=== PATIENT | female | born 1960 | race Caucasian/White ===

== ENCOUNTER 2016-08-04 11:20 | Emergency (ER) | payer BC ==
[2016-08-04] MEDS ORDERED: ACETAMINOPHEN 325 MG TABLET PO STA (11:46)
[2016-08-04] MEDS ORDERED: ACETAMINOPHEN 325 MG TABLET PO ONE (11:47)
== END 2016-08-04 12:44 | disposition home or self-care (01) ==
DX: S06.0X0A Concussion without loss of consciousness, initial encounter (principal); S60.222A Contusion of left hand, initial encounter; W10.9XXA Fall (on) (from) unspecified stairs and steps, initial encounter; Y92.008 Other place in unspecified non-institutional (private) residence as the place of occurrence of the external cause
CPT/HCPCS: 70450; 73130; 99283; A9270

== ENCOUNTER 2017-07-08 07:05 | Outpatient (CLI) | payer BC ==
--- NOTE | 2017-07-09 16:20 | Mammography Report ---
DIGITAL SCREENING MAMMOGRAM: 07/08/2017 CLINICAL INDICATION: A 57-year-old nulliparous patient with family history of breast cancer, for screening. COMPARISON: 09/2013. TECHNIQUE: Routine CC and MLO projections were obtained of the breasts. FINDINGS: The breasts demonstrate scattered fibroglandular densities bilaterally. A few coarse, typically benign calcifications are present. No suspicious masses, clustered microcalcifications, or regions of architectural distortion are identified. IMPRESSION: BENIGN FINDINGS. RECOMMENDATION: ROUTINE ANNUAL SCREENING UNLESS OTHERWISE CLINICALLY INDICATED. BIRADS CATEGORY 2-BENIGN FINDINGS. STANDARD QUALIFYING STATEMENTS: 1. This examination was reviewed with the aid of Computer-Aided Detection (CAD). 2. A negative or benign imaging report should not delay biopsy if clinically suspicious findings are present. Consider surgical consultation if warranted. More than 5% of cancers are not identified by imaging. 3. Dense breasts may obscure an underlying neoplasm. TD: 07/09/2017 16:19
== END 2017-07-08 07:06 | disposition home or self-care (01) ==
LOC: DI 07:05
PROVIDERS: ATTEND Internal Medicine
DX: Z12.31 Encounter for screening mammogram for malignant neoplasm of breast (principal); Z80.3 Family history of malignant neoplasm of breast
CPT/HCPCS: 77067

== ENCOUNTER 2020-07-25 07:38 | Outpatient (CLI) | payer BC ==
[2020-07-25 15:06] LABS: BASOPHILS % (AUTO) 0.8 %; EOSINOPHILS # (AUTO) 0.1 10^3/uL (0.0-0.7); EOSINOPHILS % (AUTO) 2.5 %; HCT - HEMATOCRIT 42.5 % (37.0-47.0); HGB - HEMOGLOBIN 13.2 g/dL (12.0-16.0); LYMPHOCYTES # (AUTO) 1.7 10^3/uL (1.5-3.5); LYMPHOCYTES % (AUTO) 33.3 %; MEAN CORPUSCULAR HEMOGLOBIN 27.3 pg (27.0-31.0); MEAN CORPUSCULAR HGB CONC 31.1 g/dL (32.0-36.0); MEAN PLATELET VOLUME 10.8 fL (7.9-10.8); MONOCYTES # (AUTO) 0.4 10^3/uL (0.0-1.0); MONOCYTES % (AUTO) 8.1 %; NEUTROPHILS # (AUTO) 2.8 10^3/uL (1.5-6.6); NEUTROPHILS % (AUTO) 55.1 %; PLT - PLATELET COUNT 262 10^3/uL (130-450); RED BLOOD COUNT 4.83 10^6/uL (4.20-5.40); RED CELL DISTRIBUTION WIDTH 12.2 % (12.0-15.0); WHITE BLOOD COUNT 5.2 x10^3/uL (4.8-10.8)
[2020-07-25 15:23] LABS: ALBUMIN 4.6 g/dL (3.2-5.5); ALBUMIN/GLOBULIN RATIO 1.4 (1.0-2.2); ALKALINE PHOSPHATASE 68 IU/L (42-121); ALT ALANINE AMINOTRANSFERASE 16 IU/L (10-60); AST ASPARTATE AMINOTRANSFERASE 20 IU/L (10-42); BILIRUBIN,TOTAL 0.9 mg/dL (0.2-1.0); BUN - BLOOD UREA NITROGEN 29 mg/dL (6-20); CALCIUM 10.2 mg/dL (8.5-10.3); CARBON DIOXIDE - CO2 30 mmol/L (21-32); CHLORIDE 94 mmol/L (101-111); CHOL/HDL RATIO 4.5 (<4.4); CHOLESTEROL 254 mg/dL; CREATININE 1.1 mg/dL (0.4-1.0); GFR - MDRD 51 (>89); GLUCOSE 106 mg/dL (70-100); HDL CHOLESTEROL 56 mg/dL; LDL CHOLESTEROL,CALCULATED 172 mg/dL; LDL/HDL RATIO 3.1 (<4.4); POTASSIUM 3.6 mmol/L (3.5-5.0); SODIUM 133 mmol/L (135-145); TOTAL PROTEIN 7.9 g/dL (6.7-8.2); TRIGLYCERIDES 129 mg/dL; VLDL CHOLESTEROL 26 mg/dL
[2020-07-25 20:12] LABS: ESTIMATED AVERAGE GLUCOSE 123 mg/dL (70-100); HEMOGLOBIN A1c% 5.9 % (4.27-6.07)
== END 2020-07-25 07:39 | disposition home or self-care (01) ==
LOC: LAB.S 07:38
PROVIDERS: ATTEND Nurse Practitioner Family
DX: R73.9 Hyperglycemia, unspecified (principal); N18.9 Chronic kidney disease, unspecified; E78.5 Hyperlipidemia, unspecified
CPT/HCPCS: 36415; 80053; 80061; 83036; 83721; 85025

== ENCOUNTER 2020-11-09 14:11 | Outpatient (CLI) | payer BC ==
--- NOTE | 2020-11-09 15:34 | CARDIAC PROCEDURE NOTE ---
Stress Test Report Service Date: 11/09/20 Service Time: 14:30 Ordering Provider: JOSLYN Rai Indication for Test: Positional lightheadedness, especially when leaning over in the setting of vigorous exercise. Significant Medical History: Has history of hypertension for about 10 years, most recently treated with daily HCTZ. Plays vigorous pickleball about 3 times weekly, has noted significant lightheadedness when leaning over to steel pickler the ball, requiring a couple of seconds to clear. 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 Type of Stress Test: Exercise Treadmill Test (ETT) Procedure: -Exercise Treadmill Test- After signing informed consent, the patient performed treadmill exercise using a Michael protocol. The patient exercised for 5 minutes 28 seconds and achieved a peak heart rate of 169 (105 percent predicted maximum heart rate for age), and an estimated workload of 7 METS. The test was terminated due to achieving target heart rate and hypertensive response to exercise. Resting heart rate: 105 Peak heart rate: 169 Normal response to exercise. Resting BP: 145/83 Peak BP: 247/93 Hypertensive BP response to exercise. Rhythm during exercise: Sinus rhythm throughout Symptoms: Fatigue and shortness of breath, no dizziness or chest discomfort. EKG at rest showed normal sinus rhythm and was completely normal. EKG at peak stress showed no ischemia by EKG criteria. In Recovery heart rate came down quickly, BP came down gradually and was 164/87 at 5 minutes of recovery; she experienced no dizziness/lightheadedness in recovery. No imaging was ordered with this stress test. IPj MD, was present throughout this treadmill stress test and supervised it in all aspects. Summary: 1) Fair exercise tolerance as evidenced by TELLY of 18%. 2) Normal resting EKG. 3) Adequate level of exercise was achieved on this treadmill stress test. 4) Abnormal hypertensive BP response to exercise. 5) No ischemic changes by EKG criteria were seen at peak exercise. 6) No imaging was ordered with this test. CONCLUSIONS: 1) Low risk results. 2) Dizziness is most likely orthostatic/mechanical due to compression of IVC by abdomen. 3) Hypertensive BP response suggests potential benefit of more potent anti- hypertensive regimen; would consider longer acting first line agents such as chlorthalidone or amlodipine.
== END 2020-11-09 14:12 | disposition home or self-care (01) ==
LOC: DI 14:11
PROVIDERS: ATTEND Nurse Practitioner Family
DX: R00.0 Tachycardia, unspecified (principal); Z82.49 Family history of ischemic heart disease and other diseases of the circulatory system; Z77.22 Contact with and (suspected) exposure to environmental tobacco smoke (acute) (chronic); I10 Essential (primary) hypertension; E78.5 Hyperlipidemia, unspecified

== ENCOUNTER 2022-08-09 12:10 | Outpatient (CLI) | payer BC ==
--- NOTE | 2022-08-12 11:19 | Mammography Report ---
BILATERAL DIGITAL DIAGNOSTIC MAMMOGRAM 3D/2D: 08/09/2022 CLINICAL: Focal right breast pain. Due for bilateral imaging. Comparison is made to exams dated: 07/08/2017 mammogram - [facility] and 09/16/2013 m ammogram - [facility]. Both breasts are heterogeneously dense, which may obscure small masses (category c / 51-75% glandular tissue). No significant masses, calcifications, or other findings are seen in either breast. IMPRESSION: INCOMPLETE: NEEDS ADDITIONAL IMAGING EVALUATION There is no mammographic abnormality seen in the right breast to correspond with the pain, however, t argeted ultrasound of the right breast is recommended and will be performed immediately following thi s exam. Based on Tyrer-Cuzick model (a risk assessment model), the patient's lifetime risk is 30.2% and her 1 0 year risk is 14.0%. If a patient has an elevated risk, a more comprehensive evaluation should be co nsidered and/or a referral to a genetic counselor. The [employer], [employer], and NCCN Guidelines advise the consideration of Breast MRI as an adjunct to screening mammo graphy in patients whose "Lifetime risk to develop breast cancer" is 20% or higher. This exam was interpreted at Station ID: [id number]. NOTE: For mammograms, a report in lay terms will be sent to the patient. Approximately 15% of breast malignancies will not be visualized mammographically. In the management of a palpable breast mass, a negative mammogram must not discourage biopsy of a clinically suspicious lesion. Electronically Signed By: Swathi Sauceda M.D. lk/:08/09/2022 13:05:30 ACR BI-RADS Category 0: Incomplete 3340F PARENCHYMAL PATTERN: (D) - The breast(s) demonstrate(s) heterogeneously dense fibroglandular parenchy ma. BI-RADS CATEGORY: (0) - 0 Ultrasound [id number] Immediate follow-up LATERALITY: (B)
--- NOTE | 2022-08-12 11:19 | Ultrasound Report ---
LIMITED ULTRASOUND OF RIGHT BREAST AND AXILLA: 08/09/2022 CLINICAL: Occasional right breast pain. Comparison is made to exams dated: 08/09/2022 mammogram, 07/08/2017 mammogram - [facility], and 09/16/2013 mammogram - [facility]. Color flow and real-time ultrasound of the right breast 10 o'clock, and axilla regions were performed on the areas of interest. Tejada scale images of the real-time examination were reviewed. IMPRESSION: NEGATIVE There is no sonographic evidence of malignancy. There is no mammographic or sonographic abnormality seen in the right breast to correspond with the p ain, however, clinical followup is recommended. A 1 year screening mammogram is recommended. This exam was interpreted at Station ID: [id number]. Electronically Signed By: Swathi Sauceda M.D. lk/:08/09/2022 14:28:35 Ultrasound BI-RADS: 1 Negative BI-RADS CATEGORY: (1) - 1 Mammogram [id number] 1 year screening LATERALITY: (B)
== END 2022-08-09 12:11 | disposition home or self-care (01) ==
LOC: DI 12:10
PROVIDERS: ATTEND Nurse Practitioner Family
DX: N64.4 Mastodynia (principal)

== ENCOUNTER 2023-03-21 09:13 | Outpatient (CLI) | payer BC ==
--- NOTE | 2023-03-21 13:29 | XRAY Report ---
PROCEDURE: Hand 3 View BILAT INDICATIONS: B/L HAND SWELLING TECHNIQUE: 3 views of the hand(s) acquired. COMPARISON: None. FINDINGS: Bones: No fractures or dislocations. Mild polyarticular DIP and PIP joint space loss and marginal sp urring. This is most pronounced in the second and third right PIP joints. No periarticular erosions. Hypertrophic osteophytes and subcortical cystic changes are present at the left CMC joint. No suspici ous bony lesions. Soft tissues: No suspicious soft tissue calcifications or masses. IMPRESSION: 1. No acute fracture or subluxation. 2. 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 Reviewed by: Ethel Brice MD on 03/21/2023 1:27 PM PST Approved by: Ethel Brice MD on 03/21/2023 1:27 PM PST Station ID: [id number]
== END 2023-03-21 09:14 | disposition home or self-care (01) ==
LOC: DI.S 09:13
PROVIDERS: ATTEND Nurse Practitioner Family
DX: R22.33 Localized swelling, mass and lump, upper limb, bilateral (principal); M19.042 Primary osteoarthritis, left hand; M19.041 Primary osteoarthritis, right hand; M19.032 Primary osteoarthritis, left wrist; M19.031 Primary osteoarthritis, right wrist